=== PATIENT | male | born 1990 | race Two or more races ===

== ENCOUNTER 2017-07-26 00:13 | Emergency (ER) | payer OTHER ==
[~2017-07-26] VITALS: Ht 175.3 cm; Wt 111.1 kg
[~2017-07-26 00:13] MED LIST: ATEN-171 PO; CLON2TAB PO; PARO10TA26 PO
[2017-07-26] MEDS ORDERED: CLONAZEPAM 0.5 MG TABLET PO ONE (01:00)
[2017-07-26] MEDS ORDERED: HYDROCODONE/APAP 10-325 MG TABLET PO ONE (01:00)
[2017-07-26 01:09] VITALS: BP 141/79
--- NOTE | 2017-07-26 01:10 | NUR ---
dcPatient discharged to home in stable conditon. Written and verbal after care instructions given. Patient verbalizes understanding of instructions. Ambulated from ER with stable gait. All belongings with patient.
--- NOTE | 2017-07-26 01:11 | NUR ---
Patient will be driven home by his mother in a private vehicle.
[2017-07-26] MEDS ORDERED: CLONAZEPAM 1 MG TABLET ONE (01:16)
[2017-07-26] MEDS ORDERED: HYDROCODONE/APAP 10-325 MG TABLET ONE (01:17)
== END 2017-07-26 01:11 | disposition home or self-care (01) ==
LOC: ER 00:16
DX: Z76.0 Encounter for issue of repeat prescription (principal); F41.0 Panic disorder [episodic paroxysmal anxiety]; I10 Essential (primary) hypertension; Z88.6 Allergy status to analgesic agent; F17.200 Nicotine dependence, unspecified, uncomplicated
CPT/HCPCS: 99284; A4663

== ENCOUNTER 2017-09-08 21:23 | Emergency (ER) | payer OTHER ==
[~2017-09-08] VITALS: Ht 175.3 cm; Wt 111.1 kg
--- NOTE | 2017-09-08 22:07 | NUR ---
Dr. Martinez at bedside for MSE
[2017-09-08] MEDS ORDERED: CLONAZEPAM 0.5 MG TABLET PO ONE (22:15)
[2017-09-08] MEDS ORDERED: CLONAZEPAM 1 MG TABLET ONE (22:39)
--- NOTE | 2017-09-08 22:43 | NUR ---
Patient discharged to home in stable conditon. Written and verbal after care instructions given. Patient verbalizes understanding of instructions. ambulatory w/ stable gait
[2017-09-08 22:44] VITALS: BP 115/71
== END 2017-09-08 22:45 | disposition home or self-care (01) ==
LOC: ER 21:25
DX: F41.0 Panic disorder [episodic paroxysmal anxiety] (principal); Z76.0 Encounter for issue of repeat prescription; I10 Essential (primary) hypertension; F17.200 Nicotine dependence, unspecified, uncomplicated; Z88.8 Allergy status to other drugs, medicaments and biological substances
CPT/HCPCS: A4663